=== PATIENT | male | born 1985 | race African-American/Black ===

== ENCOUNTER 2019-06-18 18:38 | Emergency (ER) | payer SELFPAY ==
[~2019-06-18] VITALS: Ht 170.2 cm; Wt 77.3 kg
[2019-06-18] MEDS ORDERED: INSU100I3 SQ (18:48)
[2019-06-18 18:57] LABS: GLUCOSE,POINT OF CARE 343 MG/DL (70-110)
[2019-06-18] MEDS ORDERED: IBUPROFEN 600 MG TABLET PO ONE (20:30)
[2019-06-18 20:36] LABS: RAPID GROUP A STREP POSITIVE (NEGATIVE)
[2019-06-18 20:49] LABS: INFLUENZA TYPE A NEGATIVE FOR TYPE A (NEGATIVE); INFLUENZA TYPE B NEGATIVE FOR TYPE B (NEGATIVE)
[2019-06-18] MEDS ORDERED: LIDOCAINE/PF 1% 2 ML VIAL IM ONE (21:00)
[2019-06-18] MEDS ORDERED: CefTRIAXone SODIUM 1 GM/VIAL IM ONE (21:00)
[2019-06-18 21:05] VITALS: BP 137/89
== END 2019-06-18 21:11 | disposition home or self-care (01) ==
LOC: EMS 18:40
DX: J02.0 Streptococcal pharyngitis (principal); E11.9 Type 2 diabetes mellitus without complications
CPT/HCPCS: 82962; 87430; 87804; 96372; 99283; J0696; J3490